=== PATIENT | female | born 2000 | race Caucasian/White ===

== ENCOUNTER 2021-01-05 00:05 | Emergency (ER) | payer OTHER, SELFPAY ==
--- NOTE | ~2021-01-05 | XR_ITS ---
EXAMINATION: XR KNEE, LEFT CLINICAL INFORMATION: Pain. Injury. COMPARISON: None TECHNIQUE: AP, lateral, and both oblique views of the left knee. FINDINGS: Bones and soft tissues are normal. No fracture or joint effusion. Alignment is anatomic. Joint spaces are well maintained. No abnormal soft tissue calcification. XR/XR knee LT 4V IMPRESSION: Normal left knee.
[2021-01-05 00:07] VITALS: BP 145/90; PULSE 82; RESP 16; TEMP 37; O2SAT 98; BMI 24.4
--- NOTE | 2021-01-05 01:10 | ED_ITS ---
HPI - Extremity Injury (Lower) General Chief Complaint: Extremity Injury, Lower Stated Complaint: left knee pain from sport Time Seen by Provider: 01/05/21 00:36 Source: patient Mode of arrival: ambulatory History of Present Illness HPI Narrative: This is a 20-year-old female who was playing basketball earlier this evening and states that she had her left foot planted and injured her left knee with a twisting motion. She states that initially the left knee did swell, but states it has decreased since that time. Patient reports that she has difficulty with weight-bearing and reports a history of patellar dislocation as well as prior knee strain. Currently she denies numbness/tingling into the distal extremity. Related Data Allergies Allergy/AdvReac Type Severity Reaction Status Date / Time No Known Allergies Allergy Verified 01/05/21 00:14 Review of Systems Review of Systems: Pertinent positives and negatives as stated in HPI 10 point review of systems is otherwise negative. PMFSH Past Medical History Source: nursing notes reviewed Social History Social History Advance Directives: No Advance Directives Information Provided: Yes Physical Exam Vital Signs: Vital Signs: Last Vital Signs Temp 98.6 F 01/05/21 00:07 Pulse 82 01/05/21 00:07 Resp 16 01/05/21 00:07 BP 145/90 H 01/05/21 00:07 Pulse Ox 98 01/05/21 00:07 Body Mass Index 24.4 VITAL SIGNS: Reviewed. GENERAL: Well developed, well nourished, in no acute distress. HEAD: Normocephalic/atraumatic EYES: PERRLA, EOMI OROPHARYNX: no oral lesions noted, posterior pharynx clear LUNGS: Normal breath sounds. SpO2<98> CARDIOVASCULAR: Regular rate and rhythm without noted murmurs ABDOMEN: Soft, non-tender, non-distended with bowel sounds. LEFT LOWER EXTREMITY: No gross deformities noted mild patellar swelling noted without ecchymosis, on palpation there is no tenderness palpated along tibial plateau or tuberosity with more ease is negative, drawer test is negative, Michael's negative, no patellar dislocation appreciated. NEUROLOGIC: Alert and oriented x 4. Course Course Course Narrative: This is a 20-year-old female with history and clinical presentation consistent with injury to the left knee low clinical suspicion for ACL/PCL injury, there is possibility of meniscal involvement although felt to be less likely at present. Review of all investigations negative for acute fracture dislocation. Patient was provided with an Lee wrap and given crutches. She was recommended to follow-up with a local sports medicine physician for re-evaluation and further outpatient management. Discharge Plan Discharge Clinical Impression: Left knee pain Patient Disposition: Home, Self-Care Instructions: Knee Pain (ED), Swollen Knee Joint (ED), Crutch Instructions (ED) Additional Instructions: 1. Tylenol 1000 mg, orally, every 6 hours as needed for pain control. Do not exceed 4000 mg within 24 hours. 2. Ibuprofen 400 mg, orally with milk or food, every 6 hours as needed for pain control. You may take this medication with the Tylenol for added symptom relief. 3. Apply ice to unexposed skin for 10-15 minutes, 3 to 4 times a day. 4. Recommend follow-up with a sports management internship at your earliest convenience for re-evaluation and further outpatient management. Return to the ER for acute worsening of symptoms. Stand Alone Forms: Work/School Release
[2021-01-05] MEDS: Acetaminophen 325 MG TABLET 975 MG PO (01:13)
[2021-01-05] MEDS: Ibuprofen 400 MG TABLET PO (01:14)
== END 2021-01-05 01:40 | disposition home or self-care (01) ==
PROVIDERS: Emergency Provider Student in an Organized Health Care Education/Training Program
DX: M25.562 Pain in left knee (principal)
CPT/HCPCS: 73564; 99283